=== PATIENT | female | born 1935 | race Caucasian/White ===

== ENCOUNTER 2024-09-02 04:15 | Inpatient (IN) ==
[2024-09-02] MEDS ORDERED: IOPAMIDOL 100 ML BOTTLE IV ONE (04:16)
[2024-09-02 05:22] LABS: Basophils # (Auto) 0.04 K/mcL (0.00-0.30); Basophils % (Auto) 0.3 % (0.0-2.0); Eosinophils # (Auto) 0.19 K/mcL (0.00-0.70); Eosinophils % (Auto) 1.6 % (0.0-7.0); Hematocrit 31.5 % (34.1-44.9); Hemoglobin 10.6 g/dL (11.2-15.7); Lymphocytes # (Auto) 2.54 K/mcL (1.50-4.80); Mean Cell Volume 84.2 fL (80.0-100.0); Mean Corpuscular HGB Conc 33.7 g/dL (31.0-36.0); Mean Platelet Volume 10.8 fL (8.8-12.5); Monocytes # (Auto) 1.09 K/mcL (0.10-0.90); Monocytes % (Auto) 9.5 % (1.0-12.0); Neutrophils % (Auto) 66.3 % (38.0-78.0); Platelet Count 322 K/mcL (140-440); RBC 3.74 M/mcL (3.59-5.38); Red Cell Distribution Width 13.1 % (11.5-14.5); WBC 11.5 K/mcL (4.5-11.0)
[2024-09-02 05:58] LABS: ALT/SGPT 13 U/L (<40); AST/SGOT 21 U/L (<32); Albumin 4.1 gm/dL (3.2-5.2); Albumin/Globulin Ratio 1.2 (1.0-2.3); Alkaline Phosphatase 78 U/L (39-117); Bilirubin,Total 0.4 mg/dL (0.1-1.0); Blood Urea Nitrogen 30 mg/dL (8-23); Calcium 9.1 mg/dL (8.6-10.4); Carbon Dioxide 23 mmol/L (22-30); Chloride 102 mmol/L (96-108); Globulin 3.3 gm/dL (2.2-3.7); Glomerular Filtration Rate 28; Glucose 148 mg/dL (70-105); Potassium 4.6 mmol/L (3.3-5.1); Sodium 138 mmol/L (133-145)
[2024-09-02] MEDS: ASPIRIN 325 MG ENTERIC COATED TABLET PO ONE (09:06)
[2024-09-02 11:46] LABS: Appearance,Urine Clear (Clear); Bilirubin,Urine Negative (Negative); Color,Urine Yellow; Glucose,Urine (UA) Negative (Negative); Ketones,Urine Negative (Negative); Leukocyte Esterase,Urine Negative /uL (Negative); Nitrate,Urine Negative (Negative); Protein,Urine Negative (Negative); Urine Blood Negative ery/mcL (Negative); Urine RBC 0 /hpf (0-3); Urine WBC 0 /hpf (0-4); Urobilinogen,Urine Normal
[2024-09-02] MEDS ORDERED: POTASSIUM CHLORIDE 40 MEQ in DEXTROSE 5% IN WATER 500 ML IV PRN (12:43)
[2024-09-02] MEDS ORDERED: SENNOSIDES 1 TABLET PO PRN (12:43)
[2024-09-02] MEDS ORDERED: POTASSIUM CHLORIDE 20 MEQ TABLET PO PRN ×2 (12:43)
[2024-09-02] MEDS ORDERED: ONDANSETRON 4 MG/2 ML VIAL IV PRN (12:43)
[2024-09-02] MEDS ORDERED: ACETAMINOPHEN 160 MG/5 ML ORAL.SOL PO PRN (12:43)
[2024-09-02] MEDS ORDERED: POLYETHYLENE GLYCOL 3350 17 GM PACKET PO PRN (12:43)
[2024-09-02] MEDS ORDERED: METOCLOPRAMIDE 10 MG/2 ML VIAL IV PRN (12:43)
[2024-09-02] MEDS ORDERED: MAGNESIUM SULFATE 2 GM/50 ML BAG IV PRN (12:43)
[2024-09-02] MEDS ORDERED: IPRATROPIUM/ALBUTEROL 3 ML AMPUL.NEB NEB PRN (12:43)
[2024-09-02] MEDS ORDERED: MECLIZINE 25 MG TABLET PO PRN (12:50)
[2024-09-02] MEDS: CLOPIDOGREL 75 MG TABLET PO SCH (13:35)
[2024-09-02] MEDS: 0.9 % SODIUM CHLORIDE 1,000 ML IV ONE (13:35)
[2024-09-02 15:34] LABS: HDL Cholesterol 42 mg/dL (>40); LDL Cholesterol,Calculated 75 mg/dL (<100); Non-HDL Cholesterol 104 mg/dL (<130); Triglycerides 150 mg/dL (<150)
[2024-09-02] MEDS: ACETAMINOPHEN 325 MG TABLET PO PRN (15:49)
[2024-09-02] MEDS: Brimonidine 0.15 % drops OU SCH (20:49)
[2024-09-02] MEDS: DOCUSATE SODIUM 100 MG CAPSULE PO SCH (20:49)
[2024-09-02] MEDS: BIMATOPROST 0.01% OU SCH (20:49)
[2024-09-02] MEDS: MELATONIN 3 MG TABLET PO PRN (21:17)
[2024-09-03 05:58] LABS: Basophils # (Auto) 0.04 K/mcL (0.00-0.30); Basophils % (Auto) 0.4 % (0.0-2.0); Eosinophils # (Auto) 0.29 K/mcL (0.00-0.70); Eosinophils % (Auto) 2.9 % (0.0-7.0); Hematocrit 28.8 % (34.1-44.9); Hemoglobin 9.9 g/dL (11.2-15.7); Lymphocytes # (Auto) 2.06 K/mcL (1.50-4.80); Lymphocytes % (Auto) 20.9 % (15.5-49.0); Mean Corpuscular HGB Conc 34.4 g/dL (31.0-36.0); Mean Platelet Volume 10.8 fL (8.8-12.5); Monocytes # (Auto) 1.06 K/mcL (0.10-0.90); Monocytes % (Auto) 10.7 % (1.0-12.0); Neutrophils % (Auto) 64.9 % (38.0-78.0); Platelet Count 304 K/mcL (140-440); RBC 3.47 M/mcL (3.59-5.38); WBC 9.9 K/mcL (4.5-11.0)
[2024-09-03 06:30] LABS: ALT/SGPT 10 U/L (<40); AST/SGOT 18 U/L (<32); Albumin 3.5 gm/dL (3.2-5.2); Albumin/Globulin Ratio 1.2 (1.0-2.3); Alkaline Phosphatase 71 U/L (39-117); Bilirubin,Direct < 0.2 mg/dL (0-0.3); Bilirubin,Total < 0.2 mg/dL (0.1-1.0); Blood Urea Nitrogen 27 mg/dL (8-23); Calcium 8.7 mg/dL (8.6-10.4); Carbon Dioxide 23 mmol/L (22-30); Chloride 105 mmol/L (96-108); Globulin 2.9 gm/dL (2.2-3.7); Glomerular Filtration Rate 31; Glucose 136 mg/dL (70-105); Lactate Dehydrogenase 122 U/L (135-225); Phosphorous 3.2 mg/dL (2.5-4.5); Potassium 4.6 mmol/L (3.3-5.1); Sodium 139 mmol/L (133-145); Triglycerides 131 mg/dL (<150); Uric Acid 8.4 mg/dL (2.5-8.0)
[2024-09-03] MEDS: LEVOTHYROXINE 75 MCG TABLET PO SCH (07:20)
[2024-09-03] MEDS: ENOXAPARIN 30 MG/0.3 ML SYRINGE SQ SCH (08:15)
[2024-09-03] MEDS: VENLAFAXINE 37.5 MG TAB.ER.24H PO SCH (08:15)
[2024-09-03] MEDS: ASPIRIN 81 MG TAB.CHEW PO SCH (08:15)
[2024-09-03] MEDS: ATORVASTATIN 10 MG TABLET PO SCH (08:15)
[2024-09-03 10:25] LABS: Hematocrit 31.7 % (34.1-44.9); Hemoglobin 10.5 g/dL (11.2-15.7)
[2024-09-03 11:09] LABS: Iron 37 ug/dL (37-145); TIBC Calculation 241 ug/dl (228-428); Transferrin % Saturation 15 % (15-50)
[2024-09-03 11:23] LABS: Estimated Average Glucose(eAG) 163 mg/dL; Hemoglobin A1C 7.3 % Hgb (4.0-6.0)
[2024-09-03] MEDS ORDERED: DEXTROSE 50% 50 ML VIAL IV PRN (12:03)
[2024-09-03] MEDS ORDERED: DEXTROSE 31 GM ORAL.SUSP PO PRN (12:03)
[2024-09-03] MEDS: INSULIN LISPRO 1 UNIT/0.01 ML UNIT SQ SCH (16:36)
[2024-09-04] MEDS: LEVOTHYROXINE 50 MCG TABLET PO SCH (09:14)
[2024-09-04] MEDS: LISINOPRIL 10 MG TABLET PO SCH (20:17)
[2024-09-05] MEDS: amLODIPine 5 MG TABLET PO SCH (08:30)
[2024-09-05] MEDS: LEVOTHYROXINE 50 MCG TABLET PO SCH (08:30)
[2024-09-06] MEDS: ATENOLOL 25 MG TABLET PO SCH (09:00)
== END 2024-09-07 09:14 | DRG 65 ==
LOC: ED 04:15 → ICU 12:10 → MEDSUR 09-05 21:15
PROVIDERS: ADMIT Internal Medicine; ATTEND Internal Medicine